=== PATIENT | female | born 1950 | race African-American/Black ===

== ENCOUNTER 2019-08-24 21:01 | Inpatient (IN) | payer OTHER ==
[~2019-08-24] VITALS: Ht 170.2 cm; Wt 79.4 kg
[~2019-08-24 21:01] MED LIST: AMLODIPINE10 MG PO; ASPI-COR81 M1 PO; ASPIRIN FOR CHI81 MG PO; BENICAR HCT 12.1 TAB PO; PRILOSEC OTC20 M1
--- NOTE | 2019-08-24 21:40 | NUR ---
PATIENT WAS BROUGHT BY EMS WITH COMPLAINT OF RUQ ABDOMINAL PAIN, PAIN REDIATES TO THE BACK. PATIENT WAS SEEN BY MD.EKG WAS DONE, LAB THE BEDSIDE DRAWING BLOOD FOR ORDERED TEST.
[2019-08-24 22:05] LABS: BILIRUBIN TOTAL 0.2 mg/dL (0.20-1.00); CALCIUM 7.6 mg/dL (8.5-10.1); CARBON DIOXIDE 24.2 mmol/L (21-32); CREATININE SERUM 3.5 mg/dL (0.6-1.0); POTASSIUM SERUM 3.7 mmol/L (3.5-5.1)
[2019-08-24 22:09] LABS: ALBUMIN 0.8 g/dL (3.4-5.0); TOTAL PROTEIN, SERUM 4.3 g/dL (6.4-8.2)
[2019-08-24 22:11] LABS: BASOPHIL % 0.4 % (0-2); PLATELET COUNT 397 x10^3mcL (130-400); RED CELL DISTRIBUTION WIDTH 14.2 % (11.5-14.5)
--- NOTE | 2019-08-24 22:14 | NUR ---
PATIENT IS RESTING, PAIN IS LESS NOW PER PATIENT. DORY CALL TO REPORT CRITICAL LAB. BUN -65. NOTIFIED.
--- NOTE | 2019-08-24 22:50 | NUR ---
TECH AT THE BEDSIDE DOING ULTRASOUND
--- NOTE | 2019-08-24 23:51 | NUR ---
REPORT GIVEN TO JENNIFER. KIMBALL TRANSPORTED TO ROOM 208B.
--- NOTE | 2019-08-25 00:05 | NUR ---
RECEIVED PT FROM ED [facility] [employer], CAME IN DUE TO CHEST PAIN AND ABDOMINAL PAIN RADIATING TO THE BACK. AAOX4. C/O DIZZINESS. ABLE TO FOLLOW COMMANDS. STATED THAT SHE HAS MILD SOB, O2 SAT=95%, RA. DENIES CHEST PAIN/PRESSURE AT THIS TIME, SR W/ DEPRESSED T WAVE, HR AT 71. DENIES ABDOMINAL PAIN/NAUSEA/VOMITING. HAD X6 EPISODES OF DIARRHEA ON 08/24/19. VOIDS. W/ +2 EDEMA ON BLE. WEAK PEDAL PULSES. GENERALIZED WEAKNESS. SIDE RAILS UPX2. CALL LIGHT ON REACH. HOB ELEVATED AT 30 DEG. FAMILY AT BEDSIDE. ENDORSED TO PRIMARY NURSE JEAN-PIERRE FOR CONTINUITY OF CARE
[2019-08-25 00:25] VITALS: BP 150/72
[2019-08-25 00:28] VITALS: Ht 170.2 cm; Wt 79.4 kg
--- NOTE | 2019-08-25 01:29 | NUR ---
LASIS 40 MG IV,HEPARIN 500 UNIT SQ GIVEN ORDER NO CHEST PAIN AT THIS,PT C/O OF ABDO PAIN CARMPING IN NATURE AT THE SCALE OF 7/10,PT WAS GIVEN TORADOL 30 MG IV ORDER AND WILL CONTINUE TO MONITOR.
[2019-08-25 02:30] LABS: UA SPECIFIC GRAVITY 1.025 (1.005-1.035); microscopic required? YES; urine erythrocyte 2+ (NEGATIVE)
[2019-08-25 02:38] LABS: AMPHETAMINE QUAL UR NONE DETECTED (See below)
[2019-08-25 04:56] VITALS: BP 144/61
[2019-08-25 06:40] LABS: CALCIUM 7.6 mg/dL (8.5-10.1); CARBON DIOXIDE 24.1 mmol/L (21-32); CREATININE SERUM 3.7 mg/dL (0.6-1.0); MAGNESIUM 2.1 mg/dL (1.8-2.4); PHOSPHOROUS 5.3 mg/dL (2.5-4.9); POTASSIUM SERUM 3.6 mmol/L (3.5-5.1)
--- NOTE | 2019-08-25 06:43 | NUR ---
PT HAD A RESTING NIGHT NO CHNAGE AT THIS TIME,WILL CONTINUE TO MONITOR.
[2019-08-25 06:45] LABS: BASOPHIL % 0.5 % (0-2); PLATELET COUNT 343 x10^3mcL (130-400); RED CELL DISTRIBUTION WIDTH 14.4 % (11.5-14.5)
--- NOTE | 2019-08-25 07:30 | NUR ---
PT IS AAOX4. RESP EVEN AND UNLABORED. LUNG SOUNDS CTA. PT HAS DX OF BILATERAL SMALL PLEURAL EFFUSIONS. NO COUGH OR SOB NOTED. ON R/A. TELE [address] READ[address] NSR WITH [address] SEGMENT DEPRESSION. PT ON STRICT I AND O OF 1200/DAY. IV CATH TO LH SALINE LOCKED. SITE WNL, NO S/S OF INFECTION NOTED. PT HAS BLE +2 EDEMA. BLE ELEVATED ON PILLOWS. PT DENIES PAIN AT THIS TIME. CALL LIGHT WITHIN REACH.
--- NOTE | 2019-08-25 08:13 | NUR ---
REQUEST FOR MEDICAL RECORDS HAS BEEN FAXED TO [facility]. AWAITING RESPONSE.
--- NOTE | 2019-08-25 09:36 | NUR ---
DUE MEDS GIVEN BY ATHLETIC MONITOR LOURDES ASSISTED BY PROFESSOR SERRANO. RESP EVEN AND UNLABORED. BLE ELEVATED ON PILLOW. PT DENIES PAIN. CALL LIGTH WITHIN REACH.
--- NOTE | 2019-08-25 11:53 | NUR ---
PT RECEIVING ECHO AT THIS TIME.
--- NOTE | 2019-08-25 12:47 | NUR ---
BLOOD SUGAR 126, NO INSULIN NEEDED. STRATEGIC MARKETING ASSOCIATE IN ROOM DRAWING SPECIMIN FOR TROP LEVEL. PT DENIES PAIN AND DISCOMFORT. RESP EVEN AND UNLABORED. NO DISTRESS NOTED. FAMILY AT BEDSIDE VISITING. BLE ELEVATED ON PILLOW. CALL LIGHT WITHIN REACH.
[2019-08-25 13:01] VITALS: BP 155/77
--- NOTE | 2019-08-25 14:46 | NUR ---
SCHEDULED MED GIVEN AND TOLERATED WELL. PT EDUCATED TO CALL FOR ASSISTANCE WHEN GETTING OOB. PT VERBALIZED UNDERSTANDING. FAMILY AT BEDSIDE. CALL LIGHT WITHIN REACH.
[2019-08-25 16:30] VITALS: BP 161/77
--- NOTE | 2019-08-25 16:48 | NUR ---
BLOOD SUGAR 144 NO INSULIN INDICATED PER RISS. SCHEDULED MED GIVEN AND TOLERATED WELL. B/P 161/71, 80. TYLENOL 650MG PO GIVEN FOR MID BACK PAIN 02/11. EXTRA FLUIDS GIVEN. PT REPOSITIONED FOR COMFORT. CALL LIGHT WITHIN REACH. BED IN LOWEST POSTION. FAMILY VISITING AT BEDSIDE.
--- NOTE | 2019-08-25 18:27 | NUR ---
PT IS AAOX4. RESP EVEN AND UNLABORED. NO DISTRESS NOTED. IV CATH TO N/S LOCKED. SITE WNL. TELE [address] READING NSR WITH DEPRESSED ST SEGMENT. PT DENIES PAIN AND DISCOMFORT. CALL LIGHT WITHIN REACH. BED IN LOWEST POSITION.
[2019-08-25 18:57] VITALS: BP 140/68
--- NOTE | 2019-08-25 19:15 | NUR ---
PT RECEIVED A/O X4, ABLE TO MAKE NEEDS KNOWN. DAUGHTER AT BEDSIDE. TELE #29, SR WITH CARLOS ORTEGA, PT ADMITTED FOR CP, BUT DENIES ANY CP/PRESSURE AT THIS TIME. PULSES PALPABLE, PITTING EDEMA TO BLE, WITH LEFT FOOT EDEMA GREATER THAN THE RIGHT. BREATHING IS EVEN AND UNLABORED ON RA, NO RESP DISTRESS NOTED. ABD SOFT AND NONDISTENDED, DENIES N/V. VOIDS FREELY VIA BEDPAN; BRP WITH ASSIST. STRICT I&Os WITH LIMIT OF 1200 ML/DAY. GENERALIZED WEAKNESS. SKIN IS WARM AND DRY, INTACT. PT DENIES HAVING ANY PAIN AT THIS TIME. SL TO LH, PATENT AND INTACT. NO ACUTE DISTRESS NOTED. BED IN LOWEST SETTING, SIDE RAILS UP X2, CALL LIGHT WITHIN REACH. WILL CONT TO MONITOR.
[2019-08-25 20:17] VITALS: BP 132/67
[2019-08-26] VITALS (9 sets, daily range): BP systolic 140–162; BP diastolic 55–86
--- NOTE | 2019-08-26 | NUR ---
PT RESTING IN BED WITH EYES CLOSED, BUT IS EASILY AROUSABLE. BREATHING IS EVEN AND UNLABORED, NO RESP DISTRESS NOTED. 24 HOUR URINE COLLECTION INITIATED. PT DENIES HAVING ANY PAIN AT THIS TIME. SL TO LH, INTACT. NO ACUTE DISTRESS NOTED. CALL LIGHT WITHIN REACH. WILL CONT TO MONITOR.
--- NOTE | 2019-08-26 06:24 | NUR ---
PT SLEPT WELL THROUGHOUT THE EVENING. BREATHING IS EVEN AND UNLABORED, NO RESP DISTRESS NOTED. PT DENIES HAVING ANY EPISODES OF CP DURING SHIFT. NO ACUTE CHANGES ENCOUNTERED OVER NIGHT. ALL NEEDS MET AND ANTICIPATED. PT COMPLIANT WITH NURSING CARE. PT CONTINUIES 24 HOUR URINE COLLECTION. SL TO LH, INTACT. CALL LIGHT WITHIN REACH. WILL ENDORSE CARE TO AM NURSE.
[2019-08-26 06:26] LABS: BASOPHIL % 0.9 % (0-2); PLATELET COUNT 295 x10^3mcL (130-400); RED CELL DISTRIBUTION WIDTH 14.5 % (11.5-14.5)
[2019-08-26 06:46] LABS: CALCIUM 7.8 mg/dL (8.5-10.1); CREATININE SERUM 3.5 mg/dL (0.6-1.0); MAGNESIUM 2.3 mg/dL (1.8-2.4); PHOSPHOROUS 5.2 mg/dL (2.5-4.9); POTASSIUM SERUM 3.1 mmol/L (3.5-5.1)
--- NOTE | 2019-08-26 07:30 | NUR ---
RECEIVED PT FROM [facility]. PT AWAKE, ALERT. A/OX4. PT ON ROOM AIR WITH NO RESP DISTRESS NOTED. PT ON TELE 29, DENIES CHEST PAIN AT THIS TIME. IV ACCESS LEFT HAND 24G, CDI SALINE LOCKED. PERIPHERAL PULSES PALPABLE, EDEMA NOTED TO BLE WITH LEFT>RIGHT. ACTIVE BS NOTED. PT DENIES ISSUES WITH ELIMINATION. PT ON 24 HOUR URINE COLLECTION. PT NOTED TO HAVE GENERALIZED WEAKNESS. PT AMBULATORY WITH ASSISTANCE. SKIN INTACT. PT DENIES DISCOMFORT AT THIS TIME. SAFETY MEASURES IN PLACE, BED LOW AND LOCKED. CALL LIGHT WITHIN REACH.
--- NOTE | 2019-08-26 07:35 | NUR ---
PT IN NO ACUTE DISTRESS. CONTINUITY OF CARE ENDORSED TO VALENTIN VELOZ. ALL QUESTIONS AND CONCERNS ADDRESSED.
--- NOTE | 2019-08-26 10:00 | NUR ---
SPOKE WITH PATIENT'S NURSE REGARDING ORDER FOR US GUIDED THORACENTESIS. PATIENT IS UNDECIDED AT THIS TIME ABOUT CONSENTING TO THE THORACENTESIS. WILL FOLLOW UP.
--- NOTE | 2019-08-26 11:00 | NUR ---
PER PATIENT'S NURSE SHE IS UNDECIDED ABOUT HAVING THORACENTESIS DONE. WILL NOTIFY US WHEN CONSENT OBTAINED.
--- NOTE | 2019-08-26 11:22 | NUR ---
PT TAKEN BY WHEELCHAIR TO PROCEDURE.
--- NOTE | 2019-08-26 11:54 | NUR ---
PT AGREED TO BILATERAL THORACENTESIS, CONSENT SIGNED AT THIS TIME. DAUGHTER AT BEDSIDE. PT ASKING FOR NORCO IN PREPARATION FOR PROCEDURE. MED ADMINISTERED ORDERED PRN. WILL MONITOR.
--- NOTE | 2019-08-26 12:00 | NUR ---
DR STANLEY SPOKE BY PHONE WITH MUSA PRIETO R/T ORDERED THORACENTESIS.
--- NOTE | 2019-08-26 12:25 | NUR ---
PT TAKEN BY WHEELCHAIR TO PROCEDURE.
--- NOTE | 2019-08-26 12:55 | NUR ---
PT NOT IN ROOM FOR BREATHING TREATMENT.
--- NOTE | 2019-08-26 13:33 | NUR ---
PT BACK TO FLOOR AFTER PROCEDURE. PT STATES SOME DISCOMFORT TO AREA WHERE WAS PUNCTURED BUT TOLERABLE. PT REPORTS NAUSEA. ZOFRAN IVP ADMINISTERED AT THIS TIME. WILL MONITOR. DAUGHTER AT BEDSIDE.
--- NOTE | 2019-08-26 13:36 | NUR ---
DR STANLEY COMPLETED RIGHT THORACENTESIS WITH OUTPUT 670 ML BLOODY FLUID. SPECIMEN TO LAB FOR ORDERED DIAGNOSTICE. PATIENT TOLERATED PROCEDURE WELL, C/O SLIGHT NAUSEA AFTERWARDS. VS STABLE BEDSIDE REPORT GIVEN TO VALENTIN VELOZ.
[2019-08-26 14:58] LABS: SOURCE FLUID THORACENTESIS
[2019-08-26 15:34] LABS: APPEARANCE FLUID BLOODY; COLOR FLUID RED
[2019-08-26 15:35] LABS: LYMPHOCYTE FLUID 19 %; RBC FLUID 817000 /cumm; WBC FLUID 28000 /cumm
[2019-08-26 15:37] LABS: MONOCYTE FLUID 4 %
--- NOTE | 2019-08-26 16:56 | NUR ---
DUE MEDS ADMINISTERED. PT TOLERATED WELL. VSS AT THIS TIME. SAFETY MAINTAINED. NO ACUTE DISTRESS NOTED.
--- NOTE | 2019-08-26 19:02 | NUR ---
PT STABLE AT THIS TIME. ALL NEEDS TENDED TO THROUGHOUT SHIFT. WILL CONTINUE TO MONITOR AND ENDORSE CARE TO INSTRUCTIONAL DESIGN TECHNOLOGIST.
--- NOTE | 2019-08-26 19:10 | NUR ---
REPORT RECEIVED FROM DAY SHIFT RN. PATIENT WAS SEEN RESTING IN BED W/ DAUGHTER AT BEDSIDE. NO DISTRESS NOTED. BREATHING EVEN AND UNLABORED ON ROOM AIR. NO SOB OR RESP DISTRESS NOTED. DENIES CHEST PAIN/PRESSURE. C/O 04/13 HEADACHE. WILL MEDICATED LATER. IV TO THE LEFT HAND, 24G, SALINE LOCK. PATENT AND INTACT. NO REDNESS OR SWELLING NOTED. 24 HR URINE COLLECTION IN PROGRESS. EDUCATED PATIENT ON STRICT I/O; 1200ML/DAY. VERBALIZED UNDERSTANDING. BANDAID TO RIGHT SIDE OF BACK S/P THORACENTESIS, CDI. COMFORT AND SAFETY MEASURES IN PLACE. BED IS LOCKED AND IN THE LOWEST POSITION. SIDE RAILS UP X2. CALL LIGHT IS WITHIN REACH. WILL CONTINUE TO MONITOR.
--- NOTE | 2019-08-26 20:14 | NUR ---
C/O 04/13 HEADACHE. REQUESTING TYLENOL. PRN TYLENOL GIVEN ORDERED. MED EDUCATION GIVEN. WILL CONTINUE TO MONITOR AND REASSESS PAIN LEVEL.
--- NOTE | 2019-08-27 | NUR ---
24 URINE COLLECTION SENT TO LAB.
--- NOTE | 2019-08-27 01:48 | NUR ---
NOTIFIED DR MCMANUS ABOUT 24 HR URINE PROTEIN RESULTS.
--- NOTE | 2019-08-27 02:17 | NUR ---
RESTING IN BED WITH EYES CLOSED. NO DISTRESS NOTED. BREATHING EVEN AND UNLABORED ON ROOM AIR. LEGS ELEVATED. NO S/S OF PAIN NOTED. SAFETY MEASURES IN PLACE. CALL LIGHT IS WITHIN REACH. WILL CONTINUE TO MONITOR.
[2019-08-27 05:31] VITALS: BP 128/64
[2019-08-27 06:54] LABS: CALCIUM 7.8 mg/dL (8.5-10.1); CARBON DIOXIDE 27.1 mmol/L (21-32); CREATININE SERUM 3.7 mg/dL (0.6-1.0); PLATELET COUNT 299 x10^3mcL (130-400)
--- NOTE | 2019-08-27 07:01 | NUR ---
RESTED IN LONG INTERVALS THROUGHOUT THE NIGHT. NO ACUTE CHANGES NOTED. STABLE AT THIS TIME. BREATHING EVEN AND UNLABORED. NO SOB NOTED. ALL NEEDS AND CONCERNS ADDRESSED. WILL ENDORSED CARE TO DAY SHIFT RN.
[2019-08-27 07:04] LABS: RED CELL DISTRIBUTION WIDTH 14.6 % (11.5-14.5)
--- NOTE | 2019-08-27 07:22 | NUR ---
RECEIVED PATIENT. AWAKE, ALERT, AND ORIENTED X4. NO ACUTE DISTRESS NOTED AT THIS TIME. NO C/O CHEST PAIN OR PRESSURE. IV INTACT, NO INFILTRATION N0TED. BLE EDEMA NOTED. SAFETY PRECAUTIONS IN PLACE. WILL CONTINUE TO MONITOR.
[2019-08-27 09:10] LABS: COMPLEMENT C4 28 mg/dL (14-44)
--- NOTE | 2019-08-27 09:30 | NUR ---
PATIENT IN BED, STABLE. NO ACUTE DISTRESS NOTED. NO C/O CHEST PAIN OR PRESSURE. C/O PAIN AT THIS TIME. IV INTACT AND PATENT. SAFETY PRECAUTIONS IN PLACE. SCD IN PLACE. WILL CONTINUE TO MONITOR.
[2019-08-27 09:47] VITALS: BP 143/60
--- NOTE | 2019-08-27 12:30 | NUR ---
PATIENT IN BED, EATING LUNCH. FAMILY AT BEDSIDE. NEW IV INSERTED BY CHARGE NURSE UMA AT 1200, PATIENT TOLERATED WELL. IV INTACT AND PATENT TO RFA. IV DISCONTINUED TO L HAND, CATHETER INTACT , GAUZE AND TAPE IN PLACE. NO C/O PAIN AT THIS TIME. NO DISTESS NOTED. SAFETY PRECAUTION IN PLACE. COLD COMPRESS PROVIDED TO LEFT ELBOW FOR SWELLING. WILL CONTINUE TO MONITOR.
[2019-08-27 13:51] VITALS: BP 143/70
[2019-08-27 14:05] VITALS: BP 143/70
--- NOTE | 2019-08-27 15:30 | NUR ---
PATIENT IN BED, STABLE. NO C/O CHEST PAIN OR PRESSURE. NO ACUTE RESPIRATORY DISTRESS NOTED. IV INTACT AND PATENT. SAFETY PRECAUTION IN PLACE. CALL LIGHT WITHIN REACH. WILL CONTINUE TO MONITOR. FAMILY AT BEDSIDE.
[2019-08-27 17:03] VITALS: BP 142/67
--- NOTE | 2019-08-27 18:25 | NUR ---
PATIENT IN BED, STABLE. NO C/O CHEST PAIN OR PRESSURE. NO ACUTE RESPIRATORY DISTRESS NOTED. IV INTACT AND PATENT. SAFETY PRECAUTION IN PLACE. CALL LIGHT WITHIN REACH. FAMILY AT BEDSIDE. WILL ENDORSE TO REFRIGERATION ENGINEER NURSE.
--- NOTE | 2019-08-27 19:35 | NUR ---
RECEIVED REPORT FROM DAY SHIFT RN. PT SITTING UP IN BED. AA&O X4. NO SOB NOTED ON ROOM AIR. BREATHING EVEN AND UNLABORED. NO C/O CHEST PAIN. NO DISTRESS NOTED. IV TO RFA, INTACT. SAFETY MEASURES IN PLACE. BED IN LOWEST POSITION. SIDE RAILS UP X2. INSTRUCTED PT TO USE THE CALL LIGHT FOR ASSISTANCE. CALL LIGHT WITHIN REACH. FAMILY AT BEDSIDE.
[2019-08-27 20:39] VITALS: BP 138/70
[2019-08-28 05:50] VITALS: BP 130/70
--- NOTE | 2019-08-28 06:39 | NUR ---
PT RESTED IN LONG INTERVALS DURING SHIFT. NO SOB NOTED ON ROOM AIR. NO C/O CHEST PAIN. NO DISTRESS NOTED. AMBULATES TO THE BATHROOM INDEPENDENTLY. SAFETY MEASURES MAINTAINED. CALL LIGHT WITHIN REACH. WILL ENDORSE CONTINUITY OF CARE TO DAY SHIFT RN.
[2019-08-28 07:08] LABS: BASOPHIL % 0.8 % (0-2); PLATELET COUNT 267 x10^3mcL (130-400)
--- NOTE | 2019-08-28 07:25 | NUR ---
RECEIVED PATIENT. AWAKE, ALERT, AND ORIENTED X4. NO ACUTE DISTRESS NOTED AT THIS TIME. NO C/O CHEST PAIN OR PRESSURE. IV INTACT, NO INFILTRATION N0TED. SAFETY PRECAUTIONS IN PLACE. WILL CONTINUE TO MONITOR.
[2019-08-28 07:29] LABS: RED CELL DISTRIBUTION WIDTH 14.7 % (11.5-14.5)
[2019-08-28 07:32] LABS: CALCIUM 7.8 mg/dL (8.5-10.1); CARBON DIOXIDE 24.1 mmol/L (21-32); CREATININE SERUM 3.5 mg/dL (0.6-1.0); MAGNESIUM 2.3 mg/dL (1.8-2.4); POTASSIUM SERUM 3.7 mmol/L (3.5-5.1)
[2019-08-28 08:26] VITALS: BP 155/78
--- NOTE | 2019-08-28 09:21 | NUR ---
PATIENT IN BED, STABLE. NO ACUTE DISTRESS NOTED. NO C/O CHEST PAIN OR PRESSURE. C/O PAIN AT THIS TIME. IV INTACT AND PATENT. SAFETY PRECAUTIONS IN PLACE. WILL CONTINUE TO MONITOR.
--- NOTE | 2019-08-28 10:00 | NUR ---
TATUM VIGIL AT BEDSIDE DISCUSSING PLAN OF CARE WITH PATIENT. PATIENT WILL BE DISCHARGED TODAY 08/28/19. TATUM VIGIL REMINDS PATIENT TO FOLLOW UP WITH DR. MCDANIELS OFFICE IN 2 DAYS REGARDING NEPHROTIC SYNDROME. PATIENT VERBALIZES UNDERSTANDING. ALL QUESTIONS AND CONCERNS ADDRESSED. WILL CONTINUE TO MONITOR.
[2019-08-28] MEDS ORDERED: METOPROLOL TART25 M1 PO (11:10)
[2019-08-28] MEDS ORDERED: LIPI10 PO (11:10)
[2019-08-28] MEDS ORDERED: PRI20 PO (11:11)
--- NOTE | 2019-08-28 12:13 | NUR ---
PATIENT IN BED, HAVING CONVERSATION WITH DAUGHTER AT BEDSIDE. STABLE. NO ACUTE DISTRESS NOTED. NO C/O CHEST PAIN OR PRESSURE. C/O PAIN AT THIS TIME. IV INTACT AND PATENT. SAFETY PRECAUTIONS IN PLACE. SCD IN PLACE. WILL CONTINUE TO MONITOR.
[2019-08-28 12:26] VITALS: BP 155/78
[2019-08-28] MEDS ORDERED: GOOD SENSE ASPI81 M3 PO (12:48)
[2019-08-28] MEDS ORDERED: PRILOSEC OTC20 M1 PO (12:48)
--- NOTE | 2019-08-28 13:23 | NUR ---
DISCHARGE HOME INSTRUCTIONS GIVEN TO PATIENT. VERBALIZED UNDERSTANDING. ALL QUESTIONS AND CONCERNS ADDRESSED. D/C IV TO RFA, TOLERATED WELL, CATHETER INTACT, APPLIED PRESSURE. GAUZE AND TAPE IN PLACE. ID BANDS CUT. INFORMED PATIENT TO CALL PRIOR LEAVING THE FLOOR AND AFTER GETTING DRESSED, PATIENT VERBALIZED UNDERSTANDING. SAFETY PRECAUTION IN PLACE, CALL LIGHT WITHIN REACH. FAMILY AT BEDSIDE.
--- NOTE | 2019-08-28 13:40 | NUR ---
PATIENT IS BEING DISCHARGED IN STABLE CONDITION VIA WHEELCHAIR, ACCOMPANIED BY SUPERVISOR INVENTORY MERCHANDISING. PATIENT IS WITH FAMILY. ALL BELONGINGS SENT HOME WITH PATIENT. NO ACUTE DISTRESS NOTED. ALL NEEDS MET.
== END 2019-08-28 13:35 | disposition home or self-care (01) | DRG 186 ==
LOC: ED 21:01 → DU 23:07 → MU 08-27 15:00
PROVIDERS: Emergency Medicine; Internal Medicine Nephrology; ADMIT General Practice
PROC: 0W993ZZ Drainage of Right Pleural Cavity, Percutaneous Approach (ICD-10-PCS; principal; 2019-08-26)
DX: J90 Pleural effusion, not elsewhere classified (principal); N17.0 Acute kidney failure with tubular necrosis; E43 Unspecified severe protein-calorie malnutrition; D68.69 Other thrombophilia; I13.0 Hypertensive heart and chronic kidney disease with heart failure and stage 1 through stage 4 chronic kidney disease, or unspecified chronic kidney disease; K21.9 Gastro-esophageal reflux disease without esophagitis; I50.9 Heart failure, unspecified; N18.9 Chronic kidney disease, unspecified; E11.22 Type 2 diabetes mellitus with diabetic chronic kidney disease; E11.65 Type 2 diabetes mellitus with hyperglycemia; E11.21 Type 2 diabetes mellitus with diabetic nephropathy; E78.5 Hyperlipidemia, unspecified; Z68.27 Body mass index [BMI] 27.0-27.9, adult; Z79.84 Long term (current) use of oral hypoglycemic drugs
CPT/HCPCS: 32555; 82962; 83880; 85378; 87116; 87206; A9540; C1729; G0378; J1644; J1885; J1940; J2405; J3480; J7050; J7620; Q0092